=== PATIENT | male | born 1990 | race Caucasian/White ===

== ENCOUNTER 2017-05-04 23:43 | Emergency (ER) | payer OTHER ==
[~2017-05-04] VITALS: Ht 177.8 cm; Wt 115.2 kg
[2017-05-05 00:04] VITALS: Ht 177.8 cm; Wt 115.2 kg
[2017-05-05 01:19] LABS: PLATELET COUNT 316 x10^3mcL (130-400); RED CELL DISTRIBUTION WIDTH 13.9 % (11.5-14.5)
[2017-05-05 01:20] LABS: BASOPHIL % 0 % (0-2)
[2017-05-05 01:24] LABS: CALCIUM 9.4 mg/dL (8.5-10.1); CARBON DIOXIDE 28.7 mmol/L (21-32); CHLORIDE SERUM 101 mmol/L (98-107); GFR1 > 60 mL/min; GLUCOSE SERUM 131 mg/dL (74-106); POTASSIUM SERUM 4.5 mmol/L (3.5-5.1); SODIUM SERUM 139 mmol/L (136-145)
[2017-05-05 01:28] LABS: ALKALINE PHOSPHATASE 74 U/L (46-116); ALT/SGPT 41 U/L (14-59); AST/SGOT 26 U/L (15-37); BILIRUBIN TOTAL 0.43 mg/dL (0.20-1.00); LIPASE 145 IU/L (73-393)
[2017-05-05 01:30] LABS: TOTAL PROTEIN, SERUM 8.5 g/dL (6.4-8.2)
[2017-05-05 04:59] VITALS: BP 151/80
== END 2017-05-05 04:59 | disposition home or self-care (01) ==
LOC: EDSEX 23:43 → ED 23:43
PROVIDERS: Emergency Medicine
DX: R11.10 Vomiting, unspecified (principal); R10.9 Unspecified abdominal pain; R19.7 Diarrhea, unspecified
CPT/HCPCS: J2405; J7030; Q0162